=== PATIENT | female | born 1990 | race Caucasian/White ===

== ENCOUNTER → 2018-01-30 | Outpatient (CLI) | payer BC ==
[2018-01-30 17:20] LABS: BASOPHILS % 0.4 % (0.0-2.0); EOSINOPHILS % 2.3 % (0.0-5.0); HEMATOCRIT. 41.2 % (36.0-48.0); HEMOGLOBIN. 14.3 g/dL (12.0-16.0); LYMPHOCYTES % 26.8 % (20.0-50.0); MEAN CORPUSCULAR HEMOGLOBIN 33.6 pg (28.0-32.0); MEAN CORPUSCULAR VOLUME 97.1 fL (81.0-99.0); MEAN PLATELET VOLUME 8.6 fl (7.4-10.4); NEUTROPHILS % 65.5 % (40.0-76.0); PLATELET 186 x1000/uL (130-400); RED BLOOD CELL COUNT 4.24 mill/uL (4.2-5.4); RED CELL DISTRIBUTION WIDTH 12.6 % (11.6-14.6)
[2018-01-30 17:26] LABS: CHLORIDE 106 mEq/L (98-107)
[2018-01-30 17:39] LABS: T4 FREE 0.92 ng/dL (0.76-1.46)
[2018-01-30 18:02] LABS: VITAMIN B12 SERUM 443 pg/mL (211-911)
[2018-02-03 09:09] LABS: HSV TYPE 1 SPECIFIC AB IGG Negative: <0.91 index (0.00-0.90); THYROID PEROXIDASE ANTIBODY 50 IU/mL (0-34)
[2018-02-04 13:07] LABS: TESTOSTERONE FREE 2.4 pg/mL (0.0-4.2); VITAMIN D 1-25 DIHYDROXY 52.7 pg/mL (19.9-79.3)
== END | disposition home or self-care (01) ==
LOC: LAB 16:05
PROVIDERS: ATTEND Family Medicine
DX: N89.8 Other specified noninflammatory disorders of vagina (principal); R53.83 Other fatigue
CPT/HCPCS: 36415; 80053; 82607; 82610; 82652; 82670; 83001; 84402; 84439; 84443; 84481; 85025; 86376; 86592; 86695; 86696; 87186; 87591